=== PATIENT | male | born 1960 | race African-American/Black ===

== ENCOUNTER 2017-03-29 15:08 | Emergency (ER) | payer MEDICAID ==
[~2017-03-29] VITALS: Ht 172.7 cm; Wt 78.0 kg
[2017-03-29 19:44] LABS: BASOPHILS % 0.9 % (0.0-2.0); EOSINOPHILS % 2.2 % (0.0-5.0); HEMATOCRIT. 39.8 % (42.0-52.0); HEMOGLOBIN. 13.9 g/dL (14.0-18.0); LYMPHOCYTES % 30.3 % (20.0-50.0); MEAN CORPUSCULAR HEMOGLOBIN 35.7 pg (28.0-32.0); MEAN CORPUSCULAR VOLUME 101.8 fL (80.0-94.0); MEAN PLATELET VOLUME 7.4 fl (7.4-10.4); MONOCYTES % 7.9 % (2.0-8.0); NEUTROPHILS % 58.7 % (40.0-76.0); PLATELET 211 x1000/uL (130-400); RED BLOOD CELL COUNT 3.91 mill/uL (4.7-6.1); RED CELL DISTRIBUTION WIDTH 14.4 % (11.6-14.6)
[2017-03-29 19:51] LABS: CHLORIDE 112 mEq/L (98-107)
[2017-03-29 19:54] LABS: CARBON DIOXIDE 31 mEq/L (21-32); ETHANOL BLOOD 100 mg/dL
[2017-03-29] MEDS ORDERED: OLANZAPINE 5MG TABLET PO SCH (20:00)
[2017-03-29 20:08] LABS: *AMPHETAMINES SCREEN URINE NEGATIVE (NEGATIVE); *BARBITURATES SCREEN URINE NEGATIVE (NEGATIVE); *BENZODIAZEPINES SCREEN URINE NEGATIVE (NEGATIVE); *COCAINE SCREEN URINE PRESUMTIVE POSITIVE (NEGATIVE); CANNABINOID URINE SCREEN NEGATIVE (NEGATIVE); METHADONE URINE SCREEN NEGATIVE (NEGATIVE); OPIATES URINE SCREEN NEGATIVE (NEGATIVE); PHENCYCLIDINE URINE SCREEN NEGATIVE (NEGATIVE)
[2017-03-30 10:02] VITALS: BP 138/76
== END 2017-03-30 11:11 | disposition home or self-care (01) ==
LOC: ER 15:08
DX: F29 Unspecified psychosis not due to a substance or known physiological condition (principal)
CPT/HCPCS: 36415; 80048; 80305; 80307; 80329; 85025; 99284; G0482

== ENCOUNTER → 2021-06-19 08:23 | Inpatient (IN) | payer OTHER ==
[2021-05-31 23:29] VITALS: BP 141/70
[2021-06-01] MEDS: BLOOD SUGAR DIAGNOSTIC STRIP TEST SCH ×4 (06:39→20:53)
[2021-06-01 06:59] LABS: BASOPHILS % 0.9 % (0.0-2.0); EOSINOPHILS % 1.9 % (0.0-5.0); HEMATOCRIT. 38.3 % (42.0-52.0); HEMOGLOBIN. 13.2 g/dL (14.0-18.0); LYMPHOCYTES % 18.6 % (20.0-50.0); MEAN CORPUSCULAR HEMOGLOBIN 33.2 pg (28.0-32.0); MEAN CORPUSCULAR VOLUME 96.2 fL (80.0-94.0); MEAN PLATELET VOLUME 6.8 fl (7.4-10.4); MONOCYTES % 8.7 % (2.0-8.0); NEUTROPHILS % 69.9 % (40.0-76.0); PLATELET 294 x1000/uL (130-400); RED BLOOD CELL COUNT 3.98 mill/uL (4.7-6.1); RED CELL DISTRIBUTION WIDTH 13.2 % (11.6-14.6)
[2021-06-01 07:17] LABS: CHLORIDE 109 mEq/L (98-107)
[2021-06-01 08:01] VITALS: BP 121/72
[2021-06-01] MEDS: INSULIN LISPRO 100 UNITS/ML SUBCUT SCH ×4 (08:34→21:00)
[2021-06-01] MEDS: METFORMIN HCL 500MG TABLET PO SCH ×2 (09:00→17:00)
[2021-06-01] MEDS: CLOPIDOGREL 75MG TABLET PO SCH (09:23)
[2021-06-01] MEDS: THIAMINE HCL 100MG TABLET PO SCH (09:23)
[2021-06-01] MEDS: FOLIC ACID 1MG TABLET PO SCH (09:23)
[2021-06-01] MEDS: ASPIRIN 81MG TABLET PO SCH (09:23)
[2021-06-01] MEDS: ENOXAPARIN 40MG/0.4ML SYR SUBCUT SCH (18:10)
[2021-06-01 20:00] VITALS: BP 126/72
[2021-06-01] MEDS: ATORVASTATIN CALCIUM 40MG TABLET PO SCH (20:53)
[2021-06-01 22:35] LABS: T4 FREE 0.94 ng/dL (0.76-1.46)
[2021-06-02] MEDS: BLOOD SUGAR DIAGNOSTIC STRIP TEST SCH ×4 (07:03→21:00)
[2021-06-02 07:29] LABS: CHLORIDE 112 mEq/L (98-107)
[2021-06-02 07:36] LABS: LDL CHOLESTEROL 81 mg/dL (5-100)
[2021-06-02 07:37] LABS: HDL CHOLESTEROL 32 mg/dL (40-59)
[2021-06-02 07:38] LABS: CREATINE KINASE 148 IU/L (39-308); TOTAL IRON BINDING CAPACITY 295 ug/dL (250-450)
[2021-06-02 07:44] LABS: BASOPHILS % 0.9 % (0.0-2.0); EOSINOPHILS % 2.1 % (0.0-5.0); HEMATOCRIT. 38.6 % (42.0-52.0); HEMOGLOBIN. 13.4 g/dL (14.0-18.0); LYMPHOCYTES % 19.4 % (20.0-50.0); MEAN CORPUSCULAR HEMOGLOBIN 32.8 pg (28.0-32.0); MEAN CORPUSCULAR VOLUME 94.7 fL (80.0-94.0); MEAN PLATELET VOLUME 6.8 fl (7.4-10.4); MONOCYTES % 8.3 % (2.0-8.0); NEUTROPHILS % 69.3 % (40.0-76.0); PLATELET 302 x1000/uL (130-400); RED BLOOD CELL COUNT 4.08 mill/uL (4.7-6.1); RED CELL DISTRIBUTION WIDTH 13.2 % (11.6-14.6)
[2021-06-02 07:54] LABS: PROSTRATE SPECIFIC AG TOTAL 9.51 ng/mL (0.0-4.0)
[2021-06-02 07:55] LABS: FOLIC ACID (FOLATE) SERUM 13.4 ng/mL (>5.38)
[2021-06-02 08:00] VITALS: BP 127/69
[2021-06-02] MEDS: LACTULOSE 20G/30ML UDC PO SCH ×2 (08:44→17:03)
[2021-06-02] MEDS: FOLIC ACID 1MG TABLET PO SCH (08:44)
[2021-06-02] MEDS: ASPIRIN 81MG TABLET PO SCH (08:44)
[2021-06-02] MEDS: THIAMINE HCL 100MG TABLET PO SCH (08:45)
[2021-06-02] MEDS: CLOPIDOGREL 75MG TABLET PO SCH (08:45)
[2021-06-02] MEDS: METFORMIN HCL 500MG TABLET PO SCH ×2 (08:52→17:00)
[2021-06-02] MEDS: INSULIN LISPRO 100 UNITS/ML SUBCUT SCH ×4 (09:00→21:00)
[2021-06-02] MEDS: ENOXAPARIN 40MG/0.4ML SYR SUBCUT SCH (17:04)
[2021-06-02 20:00] VITALS: BP 123/65
[2021-06-02] MEDS: LEVETIRACETAM 500MG TABLET PO SCH (21:31)
[2021-06-02] MEDS: ATORVASTATIN CALCIUM 40MG TABLET PO SCH (21:31)
[2021-06-03] MEDS: BLOOD SUGAR DIAGNOSTIC STRIP TEST SCH ×4 (06:55→20:56)
[2021-06-03 08:00] VITALS: BP 121/80
[2021-06-03] MEDS: INSULIN LISPRO 100 UNITS/ML SUBCUT SCH ×4 (09:00→20:56)
[2021-06-03] MEDS: METFORMIN HCL 500MG TABLET PO SCH ×3 (09:00→17:00)
[2021-06-03] MEDS: THIAMINE HCL 100MG TABLET PO SCH (09:07)
[2021-06-03] MEDS: FOLIC ACID 1MG TABLET PO SCH (09:07)
[2021-06-03] MEDS: LEVETIRACETAM 500MG TABLET PO SCH ×2 (09:07→20:56)
[2021-06-03 20:00] VITALS: BP 114/57
[2021-06-03] MEDS: ATORVASTATIN CALCIUM 40MG TABLET PO SCH (20:56)
[2021-06-04] MEDS: BLOOD SUGAR DIAGNOSTIC STRIP TEST SCH ×3 (05:45→20:13)
[2021-06-04] MEDS: INSULIN LISPRO 100 UNITS/ML SUBCUT SCH ×3 (05:45→20:13)
[2021-06-04 08:00] VITALS: BP 125/78
[2021-06-04] MEDS: METFORMIN HCL 500MG TABLET PO SCH ×2 (10:35→17:00)
[2021-06-04] MEDS: THIAMINE HCL 100MG TABLET PO SCH (10:35)
[2021-06-04] MEDS: LEVETIRACETAM 500MG TABLET PO SCH ×2 (10:35→20:13)
[2021-06-04] MEDS: FOLIC ACID 1MG TABLET PO SCH (10:35)
[2021-06-04 20:00] VITALS: BP 107/57
[2021-06-04] MEDS: ATORVASTATIN CALCIUM 40MG TABLET PO SCH (20:13)
[2021-06-05] MEDS: BLOOD SUGAR DIAGNOSTIC STRIP TEST SCH ×4 (06:05→21:00)
[2021-06-05] MEDS: INSULIN LISPRO 100 UNITS/ML SUBCUT SCH ×4 (06:05→21:00)
[2021-06-05 08:30] VITALS: BP 130/70
[2021-06-05] MEDS: THIAMINE HCL 100MG TABLET PO SCH (09:00)
[2021-06-05] MEDS: METFORMIN HCL 500MG TABLET PO SCH ×2 (09:00→17:00)
[2021-06-05] MEDS: FOLIC ACID 1MG TABLET PO SCH (09:00)
[2021-06-05] MEDS: LEVETIRACETAM 500MG TABLET PO SCH ×2 (09:00→20:59)
[2021-06-05] MEDS: LIDOCAINE 5% PATCH TOP SCH (13:42)
[2021-06-05] MEDS: HYDROCODONE/ACETAMINOPHEN 5/325MG TABLET PO PRN (14:56)
[2021-06-05 20:00] VITALS: BP 107/51
[2021-06-05] MEDS: ATORVASTATIN CALCIUM 40MG TABLET PO SCH (20:59)
[2021-06-06] MEDS: HYDROCODONE/ACETAMINOPHEN 5/325MG TABLET PO PRN ×4 (00:42→21:53)
[2021-06-06] MEDS: BLOOD SUGAR DIAGNOSTIC STRIP TEST SCH ×4 (06:30→21:18)
[2021-06-06 07:45] LABS: BASOPHILS % 0.8 % (0.0-2.0); EOSINOPHILS % 3.6 % (0.0-5.0); HEMATOCRIT. 35.8 % (42.0-52.0); HEMOGLOBIN. 12.4 g/dL (14.0-18.0); LYMPHOCYTES % 25.1 % (20.0-50.0); MEAN CORPUSCULAR HEMOGLOBIN 32.6 pg (28.0-32.0); MEAN CORPUSCULAR VOLUME 94.3 fL (80.0-94.0); MEAN PLATELET VOLUME 7.3 fl (7.4-10.4); MONOCYTES % 9.1 % (2.0-8.0); NEUTROPHILS % 61.4 % (40.0-76.0); PLATELET 261 x1000/uL (130-400); RED BLOOD CELL COUNT 3.79 mill/uL (4.7-6.1); RED CELL DISTRIBUTION WIDTH 13.3 % (11.6-14.6)
[2021-06-06 08:00] VITALS: BP 103/61
[2021-06-06 08:04] LABS: CHLORIDE 108 mEq/L (98-107)
[2021-06-06] MEDS: INSULIN LISPRO 100 UNITS/ML SUBCUT SCH ×4 (08:04→21:00)
[2021-06-06] MEDS: FOLIC ACID 1MG TABLET PO SCH (08:59)
[2021-06-06] MEDS: METFORMIN HCL 500MG TABLET PO SCH ×2 (08:59→16:37)
[2021-06-06] MEDS: THIAMINE HCL 100MG TABLET PO SCH (09:00)
[2021-06-06] MEDS: LEVETIRACETAM 500MG TABLET PO SCH ×2 (09:00→21:17)
[2021-06-06] MEDS: LIDOCAINE 5% PATCH TOP SCH (09:02)
[2021-06-06 19:09] LABS: 25-HYDROXY VITAMIN D3 5.7 ng/mL (.)
[2021-06-06 20:00] VITALS: BP 106/61
[2021-06-06] MEDS: ATORVASTATIN CALCIUM 40MG TABLET PO SCH (21:17)
[2021-06-07] MEDS: HYDROCODONE/ACETAMINOPHEN 5/325MG TABLET PO PRN ×3 (05:08→21:04)
[2021-06-07] MEDS: BLOOD SUGAR DIAGNOSTIC STRIP TEST SCH ×4 (06:17→21:00)
[2021-06-07] MEDS: INSULIN LISPRO 100 UNITS/ML SUBCUT SCH ×4 (06:17→21:00)
[2021-06-07 08:00] VITALS: BP 102/49
[2021-06-07] MEDS: FOLIC ACID 1MG TABLET PO SCH (08:16)
[2021-06-07] MEDS: LEVETIRACETAM 500MG TABLET PO SCH ×2 (08:16→20:59)
[2021-06-07] MEDS: THIAMINE HCL 100MG TABLET PO SCH (08:16)
[2021-06-07] MEDS: METFORMIN HCL 500MG TABLET PO SCH ×2 (08:17→16:39)
[2021-06-07] MEDS: LIDOCAINE 5% PATCH TOP SCH (08:17)
[2021-06-07] MEDS: ERGOCALCIFEROL 50000UNITS CAPSULE PO SCH (15:52)
[2021-06-07 20:00] VITALS: BP 109/64
[2021-06-07] MEDS: ATORVASTATIN CALCIUM 40MG TABLET PO SCH (20:59)
[2021-06-08] MEDS: BLOOD SUGAR DIAGNOSTIC STRIP TEST SCH ×4 (06:39→21:09)
[2021-06-08] MEDS: INSULIN LISPRO 100 UNITS/ML SUBCUT SCH ×4 (06:40→21:00)
[2021-06-08 08:00] VITALS: BP 104/60
[2021-06-08] MEDS: FOLIC ACID 1MG TABLET PO SCH (09:09)
[2021-06-08] MEDS: METFORMIN HCL 500MG TABLET PO SCH ×2 (09:09→16:32)
[2021-06-08] MEDS: LIDOCAINE 5% PATCH TOP SCH (09:10)
[2021-06-08] MEDS: LEVETIRACETAM 500MG TABLET PO SCH ×2 (09:10→22:06)
[2021-06-08] MEDS: THIAMINE HCL 100MG TABLET PO SCH (09:10)
[2021-06-08] MEDS: HYDROCODONE/ACETAMINOPHEN 5/325MG TABLET PO PRN ×2 (09:11→18:55)
[2021-06-08 20:00] VITALS: BP 112/67
[2021-06-08] MEDS: ATORVASTATIN CALCIUM 40MG TABLET PO SCH (22:06)
[2021-06-09] MEDS: BLOOD SUGAR DIAGNOSTIC STRIP TEST SCH ×4 (06:33→20:50)
[2021-06-09] MEDS: INSULIN LISPRO 100 UNITS/ML SUBCUT SCH ×4 (06:33→20:50)
[2021-06-09 08:00] VITALS: BP 122/68
[2021-06-09] MEDS: METFORMIN HCL 500MG TABLET PO SCH ×2 (09:17→16:33)
[2021-06-09] MEDS: LEVETIRACETAM 500MG TABLET PO SCH ×2 (09:18→20:50)
[2021-06-09] MEDS: FOLIC ACID 1MG TABLET PO SCH (09:18)
[2021-06-09] MEDS: THIAMINE HCL 100MG TABLET PO SCH (09:18)
[2021-06-09] MEDS: LIDOCAINE 5% PATCH TOP SCH (09:19)
[2021-06-09 20:00] VITALS: BP 96/48
[2021-06-09] MEDS: ATORVASTATIN CALCIUM 40MG TABLET PO SCH (20:50)
[2021-06-10] MEDS: BLOOD SUGAR DIAGNOSTIC STRIP TEST SCH (05:58)
[2021-06-10] MEDS: INSULIN LISPRO 100 UNITS/ML SUBCUT SCH (06:55)
[2021-06-10 08:00] VITALS: BP 113/70
[2021-06-10] MEDS: METFORMIN HCL 500MG TABLET PO SCH ×2 (08:39→16:14)
[2021-06-10] MEDS: LACTULOSE 20G/30ML UDC PO SCH ×3 (08:44→16:14)
[2021-06-10] MEDS: LEVETIRACETAM 500MG TABLET PO SCH ×2 (08:44→20:12)
[2021-06-10] MEDS: LIDOCAINE 5% PATCH TOP SCH (08:45)
[2021-06-10] MEDS: THIAMINE HCL 100MG TABLET PO SCH (08:45)
[2021-06-10] MEDS: HYDROCODONE/ACETAMINOPHEN 5/325MG TABLET PO PRN (08:45)
[2021-06-10] MEDS: FOLIC ACID 1MG TABLET PO SCH (08:45)
[2021-06-10 12:27] LABS: BASOPHILS % 0.9 % (0.0-2.0); EOSINOPHILS % 3.9 % (0.0-5.0); HEMATOCRIT. 38.8 % (42.0-52.0); LYMPHOCYTES % 22.5 % (20.0-50.0); MEAN CORPUSCULAR HEMOGLOBIN 32.3 pg (28.0-32.0); MEAN CORPUSCULAR VOLUME 96.4 fL (80.0-94.0); MEAN PLATELET VOLUME 7.2 fl (7.4-10.4); MONOCYTES % 7.3 % (2.0-8.0); NEUTROPHILS % 65.4 % (40.0-76.0); PLATELET 299 x1000/uL (130-400); RED BLOOD CELL COUNT 4.03 mill/uL (4.7-6.1); RED CELL DISTRIBUTION WIDTH 13.5 % (11.6-14.6)
[2021-06-10 12:31] LABS: CHLORIDE 104 mEq/L (98-107)
[2021-06-10 20:00] VITALS: BP 115/68
[2021-06-10] MEDS: ATORVASTATIN CALCIUM 40MG TABLET PO SCH (20:13)
[2021-06-11 08:00] VITALS: BP 108/54
[2021-06-11] MEDS: METFORMIN HCL 500MG TABLET PO SCH ×2 (08:59→16:39)
[2021-06-11] MEDS: POLYETHYLENE GLYCOL 3350 (17GM) 1 DOSE PACK PO SCH (09:00)
[2021-06-11] MEDS: LEVETIRACETAM 500MG TABLET PO SCH ×2 (09:00→20:06)
[2021-06-11] MEDS: LIDOCAINE 5% PATCH TOP SCH (09:00)
[2021-06-11] MEDS: FOLIC ACID 1MG TABLET PO SCH (09:32)
[2021-06-11] MEDS: THIAMINE HCL 100MG TABLET PO SCH (09:32)
[2021-06-11 20:00] VITALS: BP 108/58
[2021-06-11] MEDS: ATORVASTATIN CALCIUM 40MG TABLET PO SCH (20:05)
[2021-06-12] MEDS: LIDOCAINE 5% PATCH TOP SCH (08:22)
[2021-06-12] MEDS: FOLIC ACID 1MG TABLET PO SCH (08:37)
[2021-06-12] MEDS: LEVETIRACETAM 500MG TABLET PO SCH ×2 (08:38→20:08)
[2021-06-12] MEDS: THIAMINE HCL 100MG TABLET PO SCH (08:38)
[2021-06-12] MEDS: POLYETHYLENE GLYCOL 3350 (17GM) 1 DOSE PACK PO SCH (08:38)
[2021-06-12] MEDS: METFORMIN HCL 500MG TABLET PO SCH ×2 (08:38→17:00)
[2021-06-12] MEDS: HYDROCODONE/ACETAMINOPHEN 5/325MG TABLET PO PRN ×2 (08:40→19:08)
[2021-06-12 14:05] VITALS: BP 114/72
[2021-06-12 19:00] VITALS: BP 101/65
[2021-06-12] MEDS: ATORVASTATIN CALCIUM 40MG TABLET PO SCH (20:07)
[2021-06-13 08:00] VITALS: BP 123/66
[2021-06-13] MEDS: LEVETIRACETAM 500MG TABLET PO SCH ×2 (09:00→20:54)
[2021-06-13] MEDS: LIDOCAINE 5% PATCH TOP SCH (09:00)
[2021-06-13] MEDS: METFORMIN HCL 500MG TABLET PO SCH ×2 (09:00→16:16)
[2021-06-13] MEDS: FOLIC ACID 1MG TABLET PO SCH (09:49)
[2021-06-13] MEDS: THIAMINE HCL 100MG TABLET PO SCH (09:49)
[2021-06-13] MEDS: POLYETHYLENE GLYCOL 3350 (17GM) 1 DOSE PACK PO SCH (09:49)
[2021-06-13 20:00] VITALS: BP 113/69
[2021-06-13] MEDS: ATORVASTATIN CALCIUM 40MG TABLET PO SCH (20:54)
[2021-06-14 08:00] VITALS: BP 116/74
[2021-06-14] MEDS: LEVETIRACETAM 500MG TABLET PO SCH ×2 (09:00→21:28)
[2021-06-14] MEDS: LIDOCAINE 5% PATCH TOP SCH (09:00)
[2021-06-14] MEDS: POLYETHYLENE GLYCOL 3350 (17GM) 1 DOSE PACK PO SCH (09:00)
[2021-06-14] MEDS: METFORMIN HCL 500MG TABLET PO SCH ×2 (09:00→17:00)
[2021-06-14] MEDS: FOLIC ACID 1MG TABLET PO SCH (09:53)
[2021-06-14] MEDS: THIAMINE HCL 100MG TABLET PO SCH (09:53)
[2021-06-14] MEDS: ERGOCALCIFEROL 50000UNITS CAPSULE PO SCH (09:53)
[2021-06-14] MEDS: HYDROCODONE/ACETAMINOPHEN 5/325MG TABLET PO PRN ×2 (09:53→21:32)
[2021-06-14 20:00] VITALS: BP 118/65
[2021-06-14] MEDS: ATORVASTATIN CALCIUM 40MG TABLET PO SCH (21:28)
[2021-06-15 08:00] VITALS: BP 132/63
[2021-06-15] MEDS: LIDOCAINE 5% PATCH TOP SCH (08:15)
[2021-06-15] MEDS: METFORMIN HCL 500MG TABLET PO SCH ×2 (08:15→16:10)
[2021-06-15] MEDS: LEVETIRACETAM 500MG TABLET PO SCH ×2 (08:15→20:32)
[2021-06-15] MEDS: POLYETHYLENE GLYCOL 3350 (17GM) 1 DOSE PACK PO SCH (08:15)
[2021-06-15] MEDS: THIAMINE HCL 100MG TABLET PO SCH (08:40)
[2021-06-15] MEDS: FOLIC ACID 1MG TABLET PO SCH (08:40)
[2021-06-15] MEDS: HYDROCODONE/ACETAMINOPHEN 5/325MG TABLET PO PRN ×2 (08:41→15:41)
[2021-06-15 20:00] VITALS: BP 118/61
[2021-06-15] MEDS: ATORVASTATIN CALCIUM 40MG TABLET PO SCH (20:32)
[2021-06-15] MEDS: PSYLLIUM SEED PACKET PO SCH (20:32)
[2021-06-16 08:00] VITALS: BP 130/64
[2021-06-16] MEDS: LEVETIRACETAM 500MG TABLET PO SCH ×2 (08:16→20:37)
[2021-06-16] MEDS: METFORMIN HCL 500MG TABLET PO SCH ×2 (08:16→16:32)
[2021-06-16] MEDS: POLYETHYLENE GLYCOL 3350 (17GM) 1 DOSE PACK PO SCH (08:16)
[2021-06-16] MEDS: THIAMINE HCL 100MG TABLET PO SCH (08:22)
[2021-06-16] MEDS: HYDROCODONE/ACETAMINOPHEN 5/325MG TABLET PO PRN ×2 (08:22→20:36)
[2021-06-16] MEDS: FOLIC ACID 1MG TABLET PO SCH (08:22)
[2021-06-16 20:00] VITALS: BP 132/79
[2021-06-16] MEDS: PSYLLIUM SEED PACKET PO SCH (20:34)
[2021-06-16] MEDS: ATORVASTATIN CALCIUM 40MG TABLET PO SCH (20:35)
[2021-06-17 08:00] VITALS: BP 111/78
[2021-06-17] MEDS: THIAMINE HCL 100MG TABLET PO SCH (08:46)
[2021-06-17] MEDS: METFORMIN HCL 500MG TABLET PO SCH ×3 (08:46→17:00)
[2021-06-17] MEDS: LEVETIRACETAM 500MG TABLET PO SCH ×3 (08:46→20:19)
[2021-06-17] MEDS: FOLIC ACID 1MG TABLET PO SCH (08:46)
[2021-06-17] MEDS: POLYETHYLENE GLYCOL 3350 (17GM) 1 DOSE PACK PO SCH (08:46)
[2021-06-17] MEDS: HYDROCODONE/ACETAMINOPHEN 5/325MG TABLET PO PRN ×3 (09:23→21:34)
[2021-06-17 20:00] VITALS: BP 125/71
[2021-06-17] MEDS: PSYLLIUM SEED PACKET PO SCH (20:19)
[2021-06-17] MEDS: ATORVASTATIN CALCIUM 40MG TABLET PO SCH (20:19)
[2021-06-18 08:00] VITALS: BP 127/78
[2021-06-18 08:39] LABS: BASOPHILS % 0.9 % (0.0-2.0); EOSINOPHILS % 4.7 % (0.0-5.0); HEMATOCRIT. 39.6 % (42.0-52.0); HEMOGLOBIN. 13.3 g/dL (14.0-18.0); LYMPHOCYTES % 27.4 % (20.0-50.0); MEAN CORPUSCULAR HEMOGLOBIN 31.8 pg (28.0-32.0); MEAN CORPUSCULAR VOLUME 94.8 fL (80.0-94.0); MEAN PLATELET VOLUME 7.6 fl (7.4-10.4); MONOCYTES % 7.1 % (2.0-8.0); NEUTROPHILS % 59.9 % (40.0-76.0); PLATELET 288 x1000/uL (130-400); RED BLOOD CELL COUNT 4.18 mill/uL (4.7-6.1); RED CELL DISTRIBUTION WIDTH 13.2 % (11.6-14.6)
[2021-06-18 08:49] LABS: CHLORIDE 108 mEq/L (98-107)
[2021-06-18] MEDS: METFORMIN HCL 500MG TABLET PO SCH ×2 (08:55→17:00)
[2021-06-18] MEDS: LEVETIRACETAM 500MG TABLET PO SCH ×2 (08:55→20:10)
[2021-06-18] MEDS: POLYETHYLENE GLYCOL 3350 (17GM) 1 DOSE PACK PO SCH (08:59)
[2021-06-18] MEDS: THIAMINE HCL 100MG TABLET PO SCH (09:04)
[2021-06-18] MEDS: FOLIC ACID 1MG TABLET PO SCH (09:04)
[2021-06-18] MEDS: HYDROCODONE/ACETAMINOPHEN 5/325MG TABLET PO PRN ×2 (09:07→17:52)
[2021-06-18 20:00] VITALS: BP 137/65
[2021-06-18] MEDS: ATORVASTATIN CALCIUM 40MG TABLET PO SCH (20:10)
[2021-06-18] MEDS: PSYLLIUM SEED PACKET PO SCH (20:10)
[~2021-06-19] VITALS: Ht 172.7 cm; Wt 71.7 kg
[2021-06-19 07:26] VITALS: BP 141/85
[2021-06-19 08:00] VITALS: BP 141/85
[2021-06-19] MEDS: POLYETHYLENE GLYCOL 3350 (17GM) 1 DOSE PACK PO SCH (08:04)
[2021-06-19] MEDS: METFORMIN HCL 500MG TABLET PO SCH (08:04)
[2021-06-19] MEDS: LEVETIRACETAM 500MG TABLET PO SCH (08:04)
[2021-06-19] MEDS: THIAMINE HCL 100MG TABLET PO SCH (08:05)
[2021-06-19] MEDS: FOLIC ACID 1MG TABLET PO SCH (08:05)
[~2021-06-19 08:23] MED LIST: BISACODYL 5MG TABLET PO PRN; DEXTROSE 50% WATER 50ML SYRINGE IV PRN; HYDROCODONE/ACETAMINOPHEN 5/325MG TABLET PO PRN; KEPP500 PO; LACTULOSE 20G/30ML UDC PO SCH; LIP40 PO; METF-414 PO; METHYL SALICYLATE/MENTHOL CREAM 85GM TOP PRN; NALOXONE HCL 0.4MG/ML VIAL IV PRN; PSYLLIUM SEED PACKET PO NR; PSYLLIUM SEED PACKET PO SCH; SODIUM CHL 0.9% + KCL 20MEQ/L 1,000 ML IV SCH
== END | disposition home health service (06) | DRG 58 ==
LOC: UNDOADMIN 05-31 23:29
PROVIDERS: ADMIT Physical Medicine & Rehabilitation Spinal Cord Injury Medicine; ATTEND Internal Medicine Nephrology
PROC: 4A10X4Z Monitoring of Central Nervous Electrical Activity, External Approach (ICD-10-PCS; principal; 2021-06-09)
DX: I69.351 Hemiplegia and hemiparesis following cerebral infarction affecting right dominant side (principal); I61.9 Nontraumatic intracerebral hemorrhage, unspecified; I63.522 Cerebral infarction due to unspecified occlusion or stenosis of left anterior cerebral artery; E44.0 Moderate protein-calorie malnutrition; R41.4 Neurologic neglect syndrome; H53.47 Heteronymous bilateral field defects; E11.65 Type 2 diabetes mellitus with hyperglycemia; F14.10 Cocaine abuse, uncomplicated; E78.00 Pure hypercholesterolemia, unspecified; F10.10 Alcohol abuse, uncomplicated; I10 Essential (primary) hypertension; F17.210 Nicotine dependence, cigarettes, uncomplicated; H54.3 Unqualified visual loss, both eyes; E55.9 Vitamin D deficiency, unspecified; M48.061 Spinal stenosis, lumbar region without neurogenic claudication; R97.20 Elevated prostate specific antigen [PSA]; M47.817 Spondylosis without myelopathy or radiculopathy, lumbosacral region; M47.816 Spondylosis without myelopathy or radiculopathy, lumbar region; E87.8 Other disorders of electrolyte and fluid balance, not elsewhere classified; R26.89 Other abnormalities of gait and mobility; I69.322 Dysarthria following cerebral infarction; I69.320 Aphasia following cerebral infarction; Z79.899 Other long term (current) drug therapy; Z79.84 Long term (current) use of oral hypoglycemic drugs; Z68.24 Body mass index [BMI] 24.0-24.9, adult; R26.9 Unspecified abnormalities of gait and mobility
CPT/HCPCS: 36415; 70544; 70553; 72148; 80048; 80053; 80061; 82140; 82306; 82550; 82607; 82728; 82746; 82962; 83036; 83540; 83550; 84134; 84153; 84439; 84443; 84481; 85025; 92523; 92610; 93306; 93880; 93970; 97110; 97112; 97116; 97162; 97166; 97530; 97535; J1650; J1815; J3480; G0103